=== PATIENT | male | born 1960 | race Caucasian/White ===

== ENCOUNTER → 2019-01-09 | Outpatient (CLI) | payer OTHER, SELFPAY ==
[2019-01-09 12:01] LABS: PSA,Total - Annual Screen 1.35 ng/mL (0.00-4.00)
== END | disposition home or self-care (01) ==
LOC: LAB 10:32
PROVIDERS: Family Provider Family Medicine; PCP Family Medicine; Referring Provider Nurse Practitioner Adult Health; Visit Provider Nurse Practitioner Adult Health
DX: Z12.5 Encounter for screening for malignant neoplasm of prostate (principal)
CPT/HCPCS: 36415; 84153; G0103

== ENCOUNTER 2021-11-24 08:00 | Outpatient (RCR) | payer OTHER, SELFPAY ==
--- NOTE | 2021-10-06 08:20 | HP.PTEVAL ---
Patient's Visit Information JOSE KHAN is a 61 year old M referred to Physical Therapy by SHAYNA Yip with a diagnosis of R shoulder strain. Date of Evaluation: 10/06/21 Physical Therapist: Vipul Ibanez, PT, ATC - Visit Plan Frequency: 2-3x /Week Duration: 10 visits Plan: R shoulder strengthening (rot cuff), scap stab ex's, UBE, and HEP. CP to R shoulder post Rx if painful - Subjective Pt reports he injured his R shoulder approximately 2 weeks ago while at work. Pt reports he works for [employer] and was pulling out a crate of milk when he experienced severe pain in the R shoulder. Pt notes he is R hand dominant. Pt reports his pain is the worst when he attempts to flex and abduct his R shoulder. Pt denies PMHx of this type of pain. Pt denies tingling or numbness in R UE at this time. Pt notes occasional sleep difficulty at this time secondary to pain. Pt reports he has had xrays which reveal a labral tear of the R shoulder. Pt reports he has signifcant pain with forward elevation of the R UE which makes all overhead activity difficult. Pt reports he is back to work but has someone who rides with him to help with the lifting. 0/10 pain at rest, 7/10 pain at worst (attempting to raise his R UE over his shoulder) - Pain R shoulder Pain Intensity (Out of 10): 0 Pain Intensity Range: 7 - Objective Palpation: Pt is sore generally throughout his R shoulder. Minor pain along supraspinatus and LHB tendons. No obvious deformity at this time. Neuro: B UE sensation is WNL to light touch. B bicepital reflex= 1/3. ROM: L shoulder flex= 145, abd= 135, ER= 55, IR WNL: R shoulder flex= 55, abd= 85, ER= 55, IR minimal limitations. MMT: L shoulder is 5/5 throughout. R shoulder flex and ER are 4-/5 in available ROM. abd and IR are 5/5. Special testing: Pt has pos empty can, HK, and apprehension tests in R shoulder. - Balance/Special Test Scores Quick DASH Score: 18.1800 - Goals Goal 1:: Decrease R shoulder pain x 50% to aid with sleep Goal Time Frame: 4-6 Weeks Goal 2:: Increase R shoulder flex and abd ROM x 30 degrees to aid with overhead lifting Goal Time Frame: 4-6 Weeks Goal 3:: Increase R shoulder strength x 1 grade to aid with RTW without limitation Goal Time Frame: 4-6 Weeks Goal 4:: I with HEP Goal Time Frame: 4-6 Weeks - Rehabilitation Potential Physical Therapy Diagnosis: Pt has R shoulder pain, weakness, and limited ROM secondary to R shoulder strain Rehabilitation Potential: Good - Anticipated Interventions Patient/Client Instruction: Educate patient on: Condition, Plan of Care For the Purpose of:: To improve self management Therapeutic Exercise to Include: Strength training, Body mechanics, Active ROM, Scapular Strength/Stabilization For the Purpose of:: To decrease pain, To increase ROM, To improve muscle performance and motor function Cryotherapy (ice pack, ice massage): Yes For the Purpose of:: To decrease pain Thank you for the opportunity to evaluate your patient. For Medicare and Medicare HMO plans, please review the plan of care and approve it. It will need to be FAXED BACK to us at [phone] for Medicare purposes. For Medicare only, by signing this I certify the plan of care. Please let me know if there are questions or concerns regarding this plan of care. Physician Signature: Date:
--- NOTE | 2022-02-04 13:15 | HP.PTDCNRP_ITS ---
JOSE KHAN was seen in my office for initial evaluation on 10/06/21. The following Plan of Care was established for this patient: Initial Frequency: 2-3x /Week Initial Duration: 10 visits Patient/Client Instruction: Educate patient on: Condition, Plan of Care For the Purpose of:: To improve self management Therapeutic Exercise to Include: Strength training, Body mechanics, Active ROM, Scapular Strength/Stabilization For the Purpose of:: To decrease pain, To increase ROM, To improve muscle performance and motor function Cryotherapy (ice pack, ice massage): Yes For the Purpose of:: To decrease pain This patient was last seen in our office . Pertinent comments regarding their Physical therapy will appear below: Pt was treated for 12 PT visits for R shoulder pain through the date of 11/24/21. Pt has not returned through todays date and is discontinued at this time At this point I will be discontinuing this patient from physical therapy. I wo uld be happy to see this patient again in the future if found appropriate by the physician. Thank you! Vipul Ibanez, PT, ATC Balance/Gait/Functional tests - Balance/Special Test Scores Quick DASH Score: 18.1800
== END 2021-11-24 19:00 | disposition home or self-care (01) ==
LOC: PT 08:00
PROVIDERS: PCP Family Medicine; Referring Provider Physician Assistant; Visit Provider Physician Assistant
DX: S46.911D Strain of unspecified muscle, fascia and tendon at shoulder and upper arm level, right arm, subsequent encounter (principal); X58.XXXD Exposure to other specified factors, subsequent encounter
CPT/HCPCS: 97110; 97161